=== PATIENT | female | born 1945 | race Caucasian/White ===

== ENCOUNTER → 2016-08-04 | Outpatient (CLI) | payer MEDICARE, OTHER ==
--- NOTE | 2016-08-04 15:45 | MAM ---
EXAM DESCRIPTION: MAMMO BREAST SCREENING BILATERAL CAD, images were reviewed with CAD technology, R2 computer-aided detection. CLINICAL HISTORY: [facility]. COMPARISON: 2012. FINDINGS: Routine views are obtained. Scattered glandular pattern. Stable distribution. no dominant mass, architectural distortion or clustered microcalcification.. IMPRESSION: Benign exam. BIRAD CATEGORY: 2 BENIGN RECOMMENDATIONS: FOLLOW-UP: Routine screening mammogram in one year. According to the [employer], yearly mammograms are recommended starting at age 40 and continuing as long as a woman is in good health. Any breast change noted on a breast self-exam should be reported promptly to the patient's healthcare provider. Breast MRI is recommended for women with an approximately 20-25% or greater lifetime risk of breast cancer, including women with a strong family history of breast or ovarian cancer and women who have been treated for Hodgkin's disease. Electronically signed by: Rizwana Zepeda 08/04/2016 15:43
== END ==
LOC: GMAH 13:18
PROVIDERS: ATTEND Family Medicine
DX: Z12.31 Encounter for screening mammogram for malignant neoplasm of breast (principal); E78.2 Mixed hyperlipidemia
CPT/HCPCS: 77052; 84443; 84550; G0202

== ENCOUNTER → 2016-08-07 | Outpatient (CLI) | payer MEDICARE, OTHER ==
--- NOTE | 2016-08-07 12:53 | RAD ---
EXAM DESCRIPTION: XR ANKLE 3 OR MORE VIEWS CLINICAL HISTORY: 71 y/o , F, ANKLE PAIN COMPARISON: None. FINDINGS: There is no acute fracture or dislocation. There is mild soft tissue swelling laterally. The bony alignment is normal. Limited evaluation of the distal tibia/ fibula demonstrate no gross abnormalities. There is calcaneal enthesopathy at the plantar fascia insertion. The talus, calcaneus, tarsal, and metatarsal bones are grossly normal in appearance. There are degenerative changes in the intertarsal joints that are incompletely evaluated on this exam. IMPRESSION: 1. No acute fracture or dislocation. 2. Lateral soft tissue swelling. 3. Calcaneal enthesopathy. Electronically signed by: Fausto Nielsen MD 08/07/2016 12:52
--- NOTE | 2016-08-07 12:55 | RAD ---
EXAM DESCRIPTION: XR FOOT 3 OR MORE VIEWS CLINICAL HISTORY: 71 y/o , F, FOOT PAIN COMPARISON: None. FINDINGS: There is no acute fracture or dislocation. The bony alignment is normal. There is no focal soft tissue swelling or joint effusion. There are degenerative changes, most pronounced at the tarsometatarsal joints. There are also degenerative changes at the 1st metacarpophalangeal joint. IMPRESSION: 1. No acute fracture or dislocation. 2. Degenerative changes most pronounced at the tarsometatarsal joints. Electronically signed by: Fausto Nielsen MD 08/07/2016 12:53
== END ==
LOC: RAD 11:36
PROVIDERS: ATTEND Nurse Practitioner Family
DX: M79.672 Pain in left foot (principal); M12.872 Other specific arthropathies, not elsewhere classified, left ankle and foot; M77.32 Calcaneal spur, left foot; M79.9 Soft tissue disorder, unspecified

== ENCOUNTER → 2017-08-09 | Outpatient (CLI) | payer MEDICARE, OTHER ==
--- NOTE | 2017-08-10 13:13 | MAM ---
EXAM DESCRIPTION: 3D Screening BILATERAL : Digital Mammography. CLINICAL HISTORY: 72 years Female SCREENING . Breast cancer 1987 cyst aspiration and biopsy right. No complaints. Postmenopausal. No HRT. COMPARISON: 2-D digital screening bilateral studies 06/04/2017 and 12/11/2014.. Report from prior examination also reviewed. TECHNIQUE: Bilateral CC and MLO projection full-field images, 3-D tomosynthesis digital mammographic technique. Also bilateral synthesized CC/ MLO full-field images. CAD not utilized. FINDINGS: The breast parenchymal density pattern is: Scattered areas of fibroglandular density. No skin thickening or nipple retraction . Bilateral solitary microcalcifications. Bilateral vascular calcifications. Bilateral areas of stable focal asymmetry/architectural distortion. No focal, stellate mass or density, new focal asymmetry , and no suspicious microcalcifications bilaterally. Stable mammograms compared to prior studies, taking into account differences in mammographic technique IMPRESSION: BI-RADS CATEGORY: 2 - BENIGN FINDINGS. FOLLOW UP: Routine digital bilateral screening, one year interval from July 2017. Written communication explaining the IMPRESSION and follow-up, will be mailed to the patient and referring health care provider. According to the [employer], yearly mammograms are recommended starting at age 40 and continuing as long as a woman is in good health. Any breast change noted on a breast self-exam should be reported promptly to the patient's healthcare provider. Breast MRI is recommended for women with an approximately 20-25% or greater lifetime risk of breast cancer, including women with a strong family history of breast or ovarian cancer and women who have been treated for Hodgkin's disease. A negative mammographic report should not delay tissue diagnosis in patients with significant clinical history or physical findings. Extremely dense breast tissue limits the sensitivity of digital mammography. Electronically signed by: Marko Mir MD 08/10/2017 1:12 PM [facility]
== END ==
LOC: MAMMO 11:00
PROVIDERS: ATTEND Family Medicine
DX: Z12.31 Encounter for screening mammogram for malignant neoplasm of breast (principal)

== ENCOUNTER → 2017-08-11 | Outpatient (CLI) | payer MEDICARE, OTHER | END | disposition home or self-care (01) | LOC: GMAH 14:02 | PROVIDERS: ATTEND Family Medicine | DX: E78.2 Mixed hyperlipidemia (principal) ==

== ENCOUNTER → 2017-11-21 | Outpatient (CLI) | payer OTHER ==
--- NOTE | 2017-11-22 10:07 | US ---
EXAM DESCRIPTION: Venous,Lower Extremity RT CLINICAL HISTORY: BAKERS CYST/POST KNEE PAIN COMPARISON: None Available. TECHNIQUE: Right lower extremity venous duplex FINDINGS: Doppler evaluation of the right lower extremity deep veins was performed. Normal color flow is seen in the common femoral, superficial femoral, profunda femoral and greater saphenous veins. Normal flow is seen in the popliteal vein and veins below the knee in the calf. Normal venous compressibility and flow augmentation. IMPRESSION: Negative for evidence of deep venous thrombosis on right lower extremity venous Doppler sonogram. Electronically signed by: Michael Gray MD 11/22/2017 10:06 AM CDT
== END ==
LOC: US 14:18
PROVIDERS: ATTEND Physician Assistant
DX: M71.21 Synovial cyst of popliteal space [Baker], right knee (principal); M79.661 Pain in right lower leg

== ENCOUNTER → 2018-05-30 | Outpatient (CLI) | payer OTHER ==
--- NOTE | 2018-05-30 16:43 | US ---
EXAM DESCRIPTION: Liver: ULTRASOUND. CLINICAL HISTORY: ABN LIVER FUNCTION COMPARISON: None. TECHNIQUE: Transabdominal scannin-dimensional and Doppler modes. FINDINGS: Gallbladder: normal size, shape, echogenicity; no intraluminal stones or sludge. No fluid around the gallbladder. No wall thickening. 2.4 mm. Non-tender with transducer pressure. Common bile duct: caliber 3.8 mm within normal limits. Liver: normal echogenicity; contour liver capsule smooth where seen. No fluid around the liver. Intrahepatic biliary ducts normal caliber. Doppler hepatopedal flow portal vein. Normal caliber Long axis right lobe 14.7 Pancreas: Not well visualized due to intestinal gas. Duct not seen. Right kidney: long axis measures 11.2 cm. Normal Echogenicity. Normal cortical thickness. No hydronephrosis IMPRESSION: 1. Normal ultrasound gallbladder with no stones. Nontender. Normal caliber of the common bile duct. 2. Liver is unremarkable. Normal size ducts and vascularity. Smooth capsule with no ascites. Pancreas obscured by intestinal gas. 3. Negative findings in the right kidney. Electronically signed by: Marko Mir MD 05/30/2018 4:42 PM [facility]
== END ==
LOC: US 09:00
PROVIDERS: ATTEND Family Medicine
DX: R94.5 Abnormal results of liver function studies (principal)

== ENCOUNTER → 2018-06-09 | Outpatient (CLI) | payer OTHER | LOC: GMA 11:17 | PROVIDERS: ATTEND Family Medicine | DX: R94.5 Abnormal results of liver function studies (principal) ==

== ENCOUNTER → 2018-11-07 | Outpatient (CLI) | payer OTHER | LOC: GMAH 16:58 | PROVIDERS: ATTEND Family Medicine | DX: I10 Essential (primary) hypertension (principal); R42 Dizziness and giddiness; I65.22 Occlusion and stenosis of left carotid artery ==

== ENCOUNTER 2020-01-10 05:42 | Day surgery (SDC) | payer OTHER ==
[2020-01-10] MEDS ORDERED: LACTATED RINGERS 1,000 ML ONE (06:54)
[2020-01-10] MEDS ORDERED: DEXAMETHASONE INJ 10 MG/ML VIAL ONE (07:00)
[2020-01-10] MEDS ORDERED: PROPOFOL 200 MG/20 ML VIAL IV ONE (07:00)
[2020-01-10] MEDS ORDERED: LIDOCAINE 1% 10 ML VIAL INJ ONE (07:00)
[2020-01-10] MEDS ORDERED: LACTATED RINGERS 1,000 ML IVS ONE (12:05)
--- NOTE | 2020-01-10 13:17 | OP ---
DATE OF PROCEDURE: 01/10/20 PREOPERATIVE DIAGNOSIS: 1. Dysphagia. 2. Odynophagia. 3. Excessive secretions. POSTOPERATIVE DIAGNOSIS: 1. Normal EGD. PROCEDURE: 1. EGD. SURGEON: Spenser Stewart MD ANESTHESIA: General and local. FINDINGS: The esophageal surfaces, the GE junction, the body and pylorus appeared normal, as did the duodenum. There was a lot of white, thick, mucusy secretions in the pharynx, some of it in the upper esophagus and mild erythema in the posterior pharynx and around the epiglottis. COMPLICATIONS: None. PLAN: Discharge. INDICATION: This woman presented with a lot of secretions, dysphagia and occasional odynophagia, not particularly to liquids or solids and no regurgitation of undigested food. She was consented for this procedure. PROCEDURE: General anesthesia was induced in the lateral position. Bite block in place. The endoscopy was passed without difficulty into the second portion of the duodenum. Upon withdrawal, there was no evidence of ulcers. The GE junction appeared normal with no evidence of erythema. No ulcers were seen. Retroflexion revealed a normal proximal stomach. Upon withdrawal, the GE junction appeared normal and so did the esophageal surfaces. I noticed no evidence of stenosis or diverticulum. In the very proximal stomach, there was some white mucus. This apparently is coming from the pharynx. There is a lot of mucus in the posterior pharynx and around the epiglottis, in the cords. I did not see anything coming from the trachea. The scope was withdrawn with no complications. She will be referred to her primary care physician and possibly to an ENT regarding her dysphagia. #[id number] cc: Juan Gillespie MD [facility]
[2020-01-10 13:37] VITALS: BP 125/70; TEMP 98.4; O2SAT 95
== END 2020-01-10 13:20 | disposition home or self-care (01) ==
LOC: AMB 05:42
PROVIDERS: ATTEND Surgery
DX: R13.12 Dysphagia, oropharyngeal phase (principal); I10 Essential (primary) hypertension; E78.00 Pure hypercholesterolemia, unspecified; I25.2 Old myocardial infarction; E66.9 Obesity, unspecified; Z79.82 Long term (current) use of aspirin; Z88.5 Allergy status to narcotic agent; Z79.899 Other long term (current) drug therapy; Z85.3 Personal history of malignant neoplasm of breast; Z88.8 Allergy status to other drugs, medicaments and biological substances
CPT/HCPCS: 00731; 43235; J1100; J3490; J7120

== ENCOUNTER → 2020-05-06 | Outpatient (CLI) | payer OTHER ==
--- NOTE | 2020-05-09 16:04 | MAM ---
EXAM DESCRIPTION: 3D Screening BILATERAL : Digital Mammography. CLINICAL HISTORY: 75 years Female SCREENING . No complaints. Personal history of breast cancer 1986. Mother with breast cancer.. Lifetime risk of developing breast cancer (Tyrer-Cuzick model)(%): Not calculated due to personal history of breast cancer. COMPARISON: Bilateral screening digital breast tomosynthesis July 2017 and bilateral screening 2-D digital mammography July 2016. TECHNIQUE: Bilateral CC and MLO projection full-field images, digital tomosynthesis mammographic technique. Bilateral digital 2-D full-field MLO images. CAD available for 2-D images. Limited positioning due to patient body habitus and clinical condition. FINDINGS: The breast parenchymal density pattern is: Scattered areas of fibroglandular density. No skin thickening or nipple retraction. Solitary microcalcifications. Vascular calcifications. No new focal, stellate mass or density, focal asymmetry , and no suspicious microcalcifications bilaterally. Stable mammograms compared to prior study. Taking into account, differences in mammographic technique. IMPRESSION: Benign exam. BIRAD CATEGORY: 2 BENIGN FINDINGS. RECOMMENDATIONS: FOLLOW UP: Routine digital bilateral mammographic screening, one year interval from April 2020. Written communication explaining the IMPRESSION and follow-up, will be mailed to the patient and referring health care provider. According to the [employer], yearly mammograms are recommended starting at age 40 and continuing as long as a woman is in good health. Any breast change noted on a breast self-exam should be reported promptly to the patient's healthcare provider. Breast MRI is recommended for women with an approximately 20-25% or greater lifetime risk of breast cancer, including women with a strong family history of breast or ovarian cancer and women who have been treated for Hodgkin's disease. A negative mammographic report should not delay tissue diagnosis in patients with significant clinical history or physical findings. Extremely dense breast tissue limits the sensitivity of digital mammography. Electronically signed by: Marko Mir MD 05/09/2020 4:03 PM CDT
== END ==
LOC: MAMMO 13:00
PROVIDERS: ATTEND Family Medicine
DX: Z12.31 Encounter for screening mammogram for malignant neoplasm of breast (principal)